=== PATIENT | male | born 1970 | race Caucasian/White ===

== ENCOUNTER 2017-07-21 14:40 | Emergency (ER) | payer BC ==
[2017-07-21 14:58] VITALS: BP 157/96; BMI 25.0
--- NOTE | 2017-07-21 16:05 | RAD ---
Examination: Left shoulder, three views History: Trauma Findings: There is no evidence for fracture, dislocation or other acute abnormality. The humeral head is in normal position. Joint spaces are preserved. Impression: Within normal limits. Reported By:
[2017-07-21] MEDS ORDERED: TORADOL 60 MG VIAL IM ONE (17:00)
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
[2017-07-21] MEDS ORDERED: TORADOL 60 MG VIAL ONE (17:11)
== END 2017-07-21 17:47 | disposition home or self-care (01) ==
LOC: ER 15:03
DX: S40.012A Contusion of left shoulder, initial encounter (principal); S49.92XA Unspecified injury of left shoulder and upper arm, initial encounter; V89.2XXA Person injured in unspecified motor-vehicle accident, traffic, initial encounter
CPT/HCPCS: 73030; 96372; 99282; J1885